=== PATIENT | male | born 1960 | race Caucasian/White ===

== ENCOUNTER 2022-04-20 10:36 | Emergency (ER) | payer MEDICARE, MEDICAID ==
[~2022-04-20] VITALS: Ht 165.1 cm; Wt 108.2 kg
[2022-04-20 10:46] VITALS: BP 154/79
[2022-04-20] MEDS ORDERED: MUPI22OI30 TOP (11:21)
[2022-04-20] MEDS ORDERED: CEPH250T PO (11:21)
== END 2022-04-20 11:31 | disposition home or self-care (01) ==
LOC: ER 10:38
DX: S91.302A Unspecified open wound, left foot, initial encounter (principal); L03.116 Cellulitis of left lower limb; I10 Essential (primary) hypertension; Z72.89 Other problems related to lifestyle; Z88.8 Allergy status to other drugs, medicaments and biological substances; Z79.2 Long term (current) use of antibiotics; X58.XXXA Exposure to other specified factors, initial encounter; Y93.89 Activity, other specified; Y92.89 Other specified places as the place of occurrence of the external cause; Y99.8 Other external cause status
CPT/HCPCS: 99283

== ENCOUNTER → 2022-04-21 | Emergency (ER) | payer MEDICARE, MEDICAID ==
[~2022-04-21] VITALS: Ht 165.1 cm; Wt 108.2 kg
[~2022-04-21] MED LIST: CEPH250T PO; MUPI22OI30 TOP; SULF1TAB49 PO
[2022-04-21 22:19] VITALS: BP 177/87
== END | disposition left against medical advice (07) ==
LOC: ER 22:14
DX: S61.412A Laceration without foreign body of left hand, initial encounter (principal); Z53.21 Procedure and treatment not carried out due to patient leaving prior to being seen by health care provider; X58.XXXA Exposure to other specified factors, initial encounter; Y93.89 Activity, other specified; Y92.89 Other specified places as the place of occurrence of the external cause; Y99.8 Other external cause status

== ENCOUNTER 2022-04-25 11:52 | Emergency (ER) | payer MEDICARE, MEDICAID ==
[~2022-04-25] VITALS: Ht 165.1 cm; Wt 108.2 kg
[~2022-04-25 11:52] MED LIST changes: -SULF1TAB49 PO
[2022-04-25 12:22] VITALS: BP 195/95
[2022-04-25] MEDS ORDERED: sulfamethoxazole/trimethoprim DS (800/160mg) tablet PO ONE (14:35)
[2022-04-25] MEDS ORDERED: SULF1TAB49 PO (16:17)
== END 2022-04-25 16:37 | disposition home or self-care (01) ==
LOC: ER 11:53
DX: L03.114 Cellulitis of left upper limb (principal); M79.642 Pain in left hand; I10 Essential (primary) hypertension; F17.200 Nicotine dependence, unspecified, uncomplicated; Z88.5 Allergy status to narcotic agent
CPT/HCPCS: 29125; 73110; 99283; L3908